=== PATIENT | female | born 2000 | race Caucasian/White ===

== ENCOUNTER 2022-02-09 16:13 | Inpatient (IN) | payer OTHER ==
[~2022-02-09] VITALS: Ht 160 cm; Wt 81.6 kg
[2022-02-09] MEDS ORDERED: TERBUTALINE SULFATE 1 MG/ML VIAL SUBCUT ONE (21:00)
[2022-02-09] MEDS ORDERED: NALBUPHINE HCL 10 MG/ML AMP IM PRN (21:00)
[2022-02-09] MEDS ORDERED: OXYTOCIN/0.9 % SODIUM CHLORIDE 1,000 ML IV SCH (21:00)
[2022-02-09] MEDS ORDERED: LR 1,000 ML IV SCH (21:00)
[2022-02-09] MEDS ORDERED: DINOPROSTONE 10 MG SUPP VG ONE (21:30)
[2022-02-09 21:44] LABS: BASOPHILS % (AUTO) 0.3 % (0.0-2.0); EOSINOPHILS # (AUTO) 0.1 K/uL (0.0-0.4); EOSINOPHILS % (AUTO) 0.9 % (0.0-4.0); HEMOGLOBIN 11.1 g/dL (12.0-16.0); LYMPHOCYTES % (AUTO) 23.8 % (20.5-51.5); MEAN CORPUSCULAR HEMOGLOBIN 26 pg (27-31); MEAN CORPUSCULAR HGB CONC 34 % (32-36); MEAN CORPUSCULAR VOLUME 78 fL (79.0-98.0); MONOCYTES # (AUTO) 0.6 K/uL (0.0-1.0); NEUTROPHILS # (AUTO) 5.6 K/uL (1.8-7.7); PLATELET COUNT (AUTO) 240 K/uL (130-430); RED BLOOD CELL COUNT(AUTO) 4.24 MIL/uL (4.2-6.2); RED CELL DISTRIBUTION WIDTH 15.9 % (9.0-15.0); WHITE BLOOD COUNT (AUTO) 8.3 K/uL (4.5-11.0)
[2022-02-09 23:06] VITALS: BP_SYST 134
[2022-02-10] MEDS: NALBUPHINE HCL 10 MG/ML AMP IVP PRN ×2 (02:27→08:59)
[2022-02-10] MEDS ORDERED: fentaNYL CITRATE/PF 100 MCG/2 ML AMP ONE (11:23)
[2022-02-10] MEDS ORDERED: ROPIVACAINE HCL/PF 0.2% 200 ML ONE (11:23)
[2022-02-10] MEDS ORDERED: LIDOCAINE PF 1% 30ML(POUR BTL) INJ ONE (17:33)
[2022-02-10] MEDS ORDERED: LIGHT MINERAL OIL 10 ML VIAL MC ONE (17:33)
[2022-02-10] MEDS ORDERED: NALOXONE HCL 0.4 MG/ML AMP (NARCAN) ONE (17:34)
[2022-02-10] MEDS ORDERED: OXYTOCIN 10 UNIT/ML VIAL IM ONE (20:00)
[2022-02-10] MEDS ORDERED: OXYTOCIN 10 UNIT/ML VIAL ONE (22:56)
[2022-02-11] MEDS ORDERED: OXYCODONE/ACETAMINOPHEN 5-325 TABLET PO PRN ×2 (00:15)
[2022-02-11] MEDS ORDERED: HYDROcodone/ACETAMIN 5-325 MG TAB (NORCO/ VICODIN) PO PRN (00:15)
[2022-02-11] MEDS ORDERED: IBUPROFEN 600 MG TABLET PO SCH (00:30)
[2022-02-11] MEDS ORDERED: IBUPROFEN 600 MG TABLET PO ONE (01:15)
[2022-02-11] MEDS ORDERED: DERMOPLAST SPRAY TP PRN (01:30)
[2022-02-11] MEDS ORDERED: WITCH HAZEL LEAF 1 MED.PAD MED.PAD TP PRN (01:30)
[2022-02-11] MEDS ORDERED: LANOLIN 7 GM OINT. TP PRN (01:30)
[2022-02-11] MEDS: IBUPROFEN 600 MG TABLET PO SCH ×3 (05:54→17:40)
[2022-02-11] MEDS ORDERED: DOCUSATE SODIUM 100 MG CAPSULE PO SCH (09:00)
[2022-02-11] MEDS ORDERED: SENNOSIDES/DOCUSATE SODIUM 1 TAB TABLET(SENOKOT-S) PO SCH (21:00)
[2022-02-12] MEDS: IBUPROFEN 600 MG TABLET PO SCH ×3 (01:09→12:26)
[2022-02-12 07:00] LABS: HEMATOCRIT 26.4 % (36-48); HEMOGLOBIN 9.1 g/dL (12.0-16.0)
[2022-02-12] MEDS ORDERED: DIPHENHYDRAMINE INJ 50 MG/ML VIAL IVP PRN (12:00)
[2022-02-12] MEDS ORDERED: ONDANSETRON HCL 4 MG/2 ML VIAL IVP PRN (12:00)
[2022-02-12] MEDS ORDERED: FENT2mCg/mL-ROPIVA0.2%/NS EPID 200 ML EP SCH (12:00)
== END 2022-02-12 15:22 | disposition home or self-care (01) | DRG 560 ==
LOC: SPU 20:21
PROVIDERS: ADMIT Obstetrics & Gynecology; ATTEND Obstetrics & Gynecology
PROC: 10E0XZZ Delivery of Products of Conception, External Approach (ICD-10-PCS; principal; 2022-02-10)
PROC: 0HQ9XZZ Repair Perineum Skin, External Approach (ICD-10-PCS; 2022-02-10)
PROC: 3E0R3BZ Introduction of Anesthetic Agent into Spinal Canal, Percutaneous Approach (ICD-10-PCS; 2022-02-10)
PROC: 00HU33Z Insertion of Infusion Device into Spinal Canal, Percutaneous Approach (ICD-10-PCS; 2022-02-10)
DX: O70.0 First degree perineal laceration during delivery (principal); Z37.0 Single live birth; Z20.822 Contact with and (suspected) exposure to COVID-19; Z3A.39 39 weeks gestation of pregnancy
CPT/HCPCS: 36415; 81002; 85018; 85025; 86592; 86886; 86900; 86901; 94760; J2001; J2300; J2310; J2590; J3010; J7120